=== PATIENT | female | born 2005 | race African-American/Black ===

== ENCOUNTER 2024-03-15 13:52 | Emergency (ER) | payer MEDICAID, SELFPAY ==
[2024-03-15 13:57] VITALS: BP 134/75; PULSE 83; TEMP 36.3; O2SAT 98; BMI 28.4
[2024-03-15] MEDS: ONDANSETRON PF 4 MG/2 ML VIAL IV ×2 (14:22→15:55)
[2024-03-15] MEDS: 0.9 % SODIUM CHLORIDE 1,000 ML 999 ML IV (14:22)
[2024-03-15 14:45] LABS: Basophils Percent Auto 0.5 % (0.2-2.0); Hematocrit 39.4 % (36.0-48.0); Hemoglobin 14.1 g/dL (12.0-16.0); Immature Granulocytes Abs Auto 0.01 10^3/uL (0.00-0.03); Immature Granulocytes Pct Auto 0.2 % (0.0-0.5); Lymphocytes Absolute Auto 1.6 10^3/uL (1.2-3.8); Mean Corpuscular HGB Conc 35.8 g/dL (29.9-35.2); Mean Corpuscular Hemoglobin 31.1 pg (26.7-34.0); Mean Corpuscular Volume 86.8 fL (81.0-99.0); Monocytes Absolute Auto 0.4 10^3/uL (0.3-0.8); Monocytes Percent Auto 6.3 % (1.7-12.0); Neutrophils Absolute Auto 3.6 10^3/uL (1.4-6.5); Platelet Count 364 10^3/uL (150-450); Red Blood Count 4.54 10^6/uL (4.20-5.40); Red Cell Distribution Width 12.3 % (11.0-15.0); White Blood Count 5.5 10^3/uL (4.0-11.0)
[2024-03-15 15:56] LABS: Alanine Aminotransferase 18 U/L (14-59); Albumin Globulin Ratio 1.1; Albumin Level 3.6 g/dL (3.4-5.0); Alkaline Phosphatase 52 U/L (46-116); Anion Gap 13.4; Aspartate Amino Transferase 18 U/L (15-37); BUN Creatinine Ratio 11.9; Bilirubin Total 1.1 mg/dL (0.2-1.0); Calcium 8.4 mg/dL (8.5-10.1); Carbon Dioxide 23.2 mmol/L (21.0-32.0); Chloride 107 mmol/L (98-107); Estimated GFR (African America >60 (>=60); Estimated GFR (Non-African Ame >60 (>=60); Globulin 3.3 g/dL; Glucose 95 mg/dL (74-106); Potassium 3.6 mmol/L (3.5-5.1); Sodium 140 mmol/L (136-145); Total Protein 6.9 g/dL (6.4-8.2)
--- NOTE | 2024-03-15 16:03 | ED.GENADUL1 ---
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 Symptoms started about midnight. Yesterday she went to a restaurant [place] and had food there but her boyfriend did and he did not get sick. That was around 5 or 6 in the evening and by midnight she started vomiting throughout the evening. She has not had previous history of pancreatitis peptic ulcer disease gallbladder disease or any GI symptoms. She said she had about 4 shots of [place] apple flavor. She also has marijuana user. She has no other past or current medical problems of the GI tract. She has not had any diarrhea. He is not ill. She has not running a fever. Past surgical history is none. She does not really have pain just severe nausea. Related Data Home Medications ?Medication ?Instructions ?Recorded ?Confirmed No Known Home Medications 03/15/24 03/15/24 Allergies Allergy/AdvReac Type Severity Reaction Status Date / Time methylphenidate AdvReac Intermediate Agitated Verified 03/15/24 14:24 [From Concerta] Opioid HPI Opioid Management Most Recent Opioid Data: No Data to Display Exam Narrative Exam Narrative: Awake alert denies any abdominal discomfort or pain at this time. Vital signs are stable. Afebrile. Examination of the abdomen there is no surgical incisions noted. There is good bowel sounds there is no peritoneal findings, there is no rebound rigidity or discomfort to palpation. Lewis sign is negative no tenderness at McBurney's point. No hepatosplenomegaly. There is no scleral icterus or evidence of anemia. Her conjunctiva are moist and pink. Her tongue is moist. The rest examination is unremarkable. Constitutional Vital Signs, click to edit/add: Last Vital Signs Temp 97.4 F L 03/15/24 13:57 Pulse 83 03/15/24 13:57 Resp 18 03/15/24 13:57 BP 134/75 03/15/24 13:57 Pulse Ox 98 03/15/24 13:57 O2 Del Method Room Air 03/15/24 13:57 Course Vital Signs Vital signs: Vital Signs Temperature 97.4 F L 03/15/24 13:57 Pulse Rate 83 03/15/24 13:57 Respiratory Rate 18 03/15/24 13:57 Blood Pressure 134/75 03/15/24 13:57 Pulse Oximetry 98 03/15/24 13:57 Oxygen Delivery Method Room Air 03/15/24 13:57 Temperature 97.4 F L 03/15/24 13:57 Pulse Rate 83 03/15/24 13:57 Respiratory Rate 18 03/15/24 13:57 Blood Pressure 134/75 03/15/24 13:57 Pulse Oximetry 98 03/15/24 13:57 Oxygen Delivery Method Room Air 03/15/24 13:57 Medical Decision Making MDM Narrative Medical decision making narrative: This patient presents with repeated episodes of vomiting so IVs were established and laboratory testing was done. Although this may be due to alcohol she says she is used to that quantity of alcohol and so we discussed possibility of gastritis versus cyclic vomiting. She was given IV fluids and Zofran and felt substantially improved. She felt good enough to go home. We will give her a prescription for meds and if she does not feel good tomorrow work note Lab Data Labs: Lab Results 03/15/24 03/15/24 Range/Units 14:05 15:13 WBC 5.5 (4.0-11.0) 10^3/uL RBC 4.54 (4.20-5.40) 10^6/uL Hgb 14.1 (12.0-16.0) g/dL Hct 39.4 (36.0-48.0) % MCV 86.8 (81.0-99.0) fL MCH 31.1 (26.7-34.0) pg MCHC 35.8 H (29.9-35.2) g/dL RDW 12.3 (11.0-15.0) % Plt Count 364 (150-450) 10^3/uL MPV 12.0 (9.5-13.5) fL Neut % (Auto) 65.0 (43.0-75.0) % Lymph % (Auto) 28.0 (20.5-60.0) % [place] % (Auto) 6.3 (1.7-12.0) % Eos % (Auto) 0.0 L (0.9-7.0) % Baso % (Auto) 0.5 (0.2-2.0) % Neut # (Auto) 3.6 (1.4-6.5) 10^3/uL Lymph # (Auto) 1.6 (1.2-3.8) 10^3/uL [place] # (Auto) 0.4 (0.3-0.8) 10^3/uL Eos # (Auto) 0.0 (0.0-0.7) 10^3/uL Baso # (Auto) 0.0 (0.0-0.1) 10^3/uL Abs Immat Gran (auto) 0.01 (0.00-0.03) 10^3/uL Imm/Tot Granulo (auto) 0.2 (0.0-0.5) % Sodium 140 (136-145) mmol/L Potassium 3.6 (3.5-5.1) mmol/L Chloride 107 (98-107) mmol/L Carbon Dioxide 23.2 (21.0-32.0) mmol/L Anion Gap 13.4 BUN 8.0 (6.4-19.3) mg/dL Creatinine 0.67 (0.55-1.02) mg/dL Est GFR ( Amer) >60 (>=60) Est GFR (Non-Af Amer) >60 (>=60) BUN/Creatinine Ratio 11.9 Glucose 95 (74-106) mg/dL Calcium 8.4 L (8.5-10.1) mg/dL Total Bilirubin 1.1 H (0.2-1.0) mg/dL AST 18 (15-37) U/L ALT 18 (14-59) U/L Alkaline Phosphatase 52 (46-116) U/L Total Protein 6.9 (6.4-8.2) g/dL Albumin 3.6 (3.4-5.0) g/dL Globulin 3.3 g/dL Albumin/Globulin Ratio 1.1 Lipase 21.0 (16.0-77.0) U/L Discharge Plan Discharge Stand Alone Forms: Work/School Release, Portal Instructions Chief Complaint: Nausea/Vomiting/Diarrhea Clinical Impression: Dehydration Patient Disposition: Home, Self-Care Time of Disposition Decision: 16:06 Prescriptions / Home Meds: No Action No Known Home Medications Print Language: [place] Additional Instructions: Clear fluids only for the next 24 hours, no solid food. Zofran as needed. Referrals: Physician,Non-Staff, MD [Primary Care Provider] - 1 week
== END 2024-03-15 16:17 | disposition home or self-care (01) ==
PROVIDERS: Emergency Provider Emergency Medicine Emergency Medical Services
DX: E86.0 Dehydration (principal); F12.90 Cannabis use, unspecified, uncomplicated
CPT/HCPCS: 36415; 80053; 83690; 85025; 96361; 96374; 96376; 99284; J2405